=== PATIENT | male | born 1950 | race Caucasian/White ===

== ENCOUNTER 2025-04-19 14:15 | Outpatient (CLI) | payer MEDICARE, OTHER ==
[~2025-04-19 14:15] MED LIST: AMLO5TAB16 PO; ASPI-1265 PO; DESV25TA PO; METO-384 PO; RAMI10CA78 PO; TICA90TA PO; TRAZ-251 PO; iohexol 300mg/ml 100ml inj. ONE
--- NOTE | 2025-04-19 15:04 | RADIOLOGY REPORT ---
EXAM: CT CT UPPER EXTREM(SHOULDER/ARM) W/ IV CONTRAST INDICATION: PAIN IN LEFT SHOULDER;PRESENCE OF LEFT ARTIFICIAL TECHNIQUE: Axial images of right upper extremity with intravenous contrast have been obtained along with coronal and sagittal reformatted images. All CT scans at this facility use dose modulation, iterative reconstruction, and/or weight based dosing when appropriate to reduce radiation dose to as low as reasonably achievable. COMPARISON: None FINDINGS: BONES: No CT evidence of an acute fracture or aggressive osseous lesion. left shoulder arthroplasty. No osseous lucency along the hardware bone interfaces. No perihardware fracture. Peripherally enhancing fluid collection deep to the undersurface of the lateral acromion, overlying the glenoid component measuring 4.5 x 2.9 cm. Possibly contiguous with the left acromioclavicular joint. MUSCLES: Mild fatty infiltration /atrophy of the superior fibers of the infraspinatus. JOINT SPACES: No joint effusion. OTHER: None. IMPRESSION: 1. Suspected peripherally enhancing fluid collection above the area of the glenoid component deep to the lateral acromion and communicating with the left acromioclavicular joint (infected versus sterile). 2. No CT evidence of an acute fracture.
== END 2025-04-19 23:59 | disposition home or self-care (01) ==
LOC: RAD 14:15
PROVIDERS: ATTEND Specialist
DX: T84.028A Dislocation of other internal joint prosthesis, initial encounter (principal); M25.512 Pain in left shoulder; Y65.8 Other specified misadventures during surgical and medical care; Y92.89 Other specified places as the place of occurrence of the external cause; Z96.612 Presence of left artificial shoulder joint
CPT/HCPCS: 73201; Q9967

== ENCOUNTER 2025-05-24 10:23 | Outpatient (CLI) | payer MEDICARE, OTHER ==
[~2025-05-24 10:23] MED LIST changes: -iohexol 300mg/ml 100ml inj. ONE
--- NOTE | 2025-05-24 11:44 | RADIOLOGY REPORT ---
CHEST RADIOGRAPH Indication: LEFT SHOULDER PAIN/DISLOCATION OF PROSTHETIC JOINT Technique: Single frontal view of the chest was obtained Comparison: CHEST,SINGLE VIEW on DOS: 12/22/22 FINDINGS: Lines and Tubes: None Lungs: No focal consolidation. Pleura: No effusion. No pneumothorax. Cardiomediastinal contours: Unremarkable Bones: No acute osseous abnormality. IMPRESSION: No acute cardiopulmonary disease.
== END 2025-05-24 23:59 | disposition home or self-care (01) ==
LOC: RAD 10:23
PROVIDERS: ATTEND Specialist
DX: T84.028A Dislocation of other internal joint prosthesis, initial encounter (principal); M25.512 Pain in left shoulder; Y65.8 Other specified misadventures during surgical and medical care; Y92.89 Other specified places as the place of occurrence of the external cause; Z96.612 Presence of left artificial shoulder joint
CPT/HCPCS: 71045